=== PATIENT | male | born 1965 | race Caucasian/White ===

== ENCOUNTER 2016-12-26 20:59 | Emergency (ER) | payer OTHER ==
[~2016-12-26] VITALS: Ht 180.3 cm; Wt 88.0 kg
[~2016-12-26 20:59] MED LIST: AMLO5TAB2 PO; ATOR40TA16 PO; CEPH-460 PO; CLOP75TA PO; CYCL1TAB29 PO; HYDR25TA5 PO; METO50TA PO; POTA-245 PO; ULTR50TA5 PO
[2016-12-26 21:01] VITALS: BP 230/120; PULSE 93; RESP 20; TEMP 99.3; O2SAT 99
[2016-12-26 21:10] VITALS: BP 190/103; PULSE 88; RESP 16; O2SAT 98
[2016-12-26] MEDS ORDERED: HYDR-3533 PO (21:10)
[2016-12-26 21:11] VITALS: RESP 16; O2SAT 98
[2016-12-26] MEDS ORDERED: NITROGLYCERIN 0.4 MG SL 25 TABS/BTL SL ONE (21:15)
[2016-12-26] MEDS ORDERED: ASPIRIN 325 MG TAB PO ONE (21:15)
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
[2016-12-26 21:25] VITALS: BP 184/108; PULSE 79; RESP 18; O2SAT 96
[2016-12-26] MEDS ORDERED: LORazepam 2 MG/ML VIAL IV PUSH ONE (21:30)
[2016-12-26 21:32] LABS: AUTOMATED NEUTROPHIL # 5.5 TH/MM3 (1.8-7.7); BASOPHIL % 0.4 % (0.0-2.0); EOSINOPHIL # 0.2 TH/MM3 (0-0.4); EOSINOPHIL % 2.3 % (0.0-4.0); HEMATOCRIT 44.5 % (39.0-51.0); HEMO FLAGS DIFF FINAL; LYMPH % 24.1 % (9.0-44.0); LYMPHOCYTE # 1.9 TH/MM3 (1.0-4.8); MEAN CELL VOLUME 85.8 FL (80.0-100.0); MEAN CORPUSCULAR HEMOGLOBIN 29.2 PG (27.0-34.0); MONO % 4.9 % (0.0-8.0); NEUT % 68.3 % (16.0-70.0); PLATELET COUNT 182 TH/MM3 (150-450); RED BLOOD COUNT 5.18 MIL/MM3 (4.50-5.90); RED CELL DISTRIBUTION WIDTH 13.4 % (11.6-17.2)
[2016-12-26 21:34] VITALS: BP 170/93; PULSE 80; RESP 16; O2SAT 96
[2016-12-26 21:38] LABS: APTT (PATIENT) 25.4 SEC (24.3-30.1); INTERNATIONAL NORMALIZED RATIO 0.9 RATIO; PROTHROMBIN TIME - PATIENT 10.3 SEC (9.8-11.6)
[2016-12-26 21:59] LABS: ALKALINE PHOSPHATASE 75 U/L (45-117); ALT (GPT) 40 U/L (12-78); ANION GAP 9 MEQ/L (5-15); AST (GOT) 19 U/L (15-37); BICARBONATE 30.6 MEQ/L (21.0-32.0); BLOOD UREA NITROGEN 17 MG/DL (7-18); CHLORIDE 101 MEQ/L (98-107); CREATINE KINASE 217 U/L (39-308); GLOMERULAR FILTRATION RATE 59 ML/MIN (>89); MAGNESIUM 2.1 MG/DL (1.5-2.5); SODIUM (NA) 141 MEQ/L (136-145); TOTAL BILIRUBIN ADULT 0.5 MG/DL (0.2-1.0)
--- NOTE | 2016-12-26 22:00 | RADRPT ---
EXAM DATE/TIME: 12/26/2016 21:42 [facility] COMPARISON: No previous studies available for comparison. INDICATIONS : Chest pain. MEDICAL HISTORY : None. SURGICAL HISTORY : None. ENCOUNTER: Initial ACUITY: 1 day PAIN SCORE: 0/10 LOCATION: Bilateral chest FINDINGS: A single view of the chest demonstrates the lungs to be symmetrically aerated without evidence of mas s, infiltrate or effusion. The cardiomediastinal contours are unremarkable. Osseous structures are intact. CONCLUSION: No acute disease. Kwasi Bahena MD on December 26, 2016 at 21:58 Board Certified Radiologist. This report was verified electronically.
[2016-12-26 22:03] LABS: POTASSIUM 2.9 MEQ/L (3.5-5.1)
[2016-12-26 22:07] VITALS: BP 161/95; PULSE 88; RESP 22; O2SAT 96
[2016-12-26] MEDS ORDERED: POTASSIUM CHLORIDE 20 MEQ CONTROLLED RELEASE TAB PO ONE (22:15)
[2016-12-26 22:17] LABS: CKMB 2.3 NG/ML (0.5-3.6)
[2016-12-26] MEDS ORDERED: VIST50CA PO (22:17)
[2016-12-27 00:12] VITALS: BP 160/90; PULSE 88; RESP 20; O2SAT 98
--- NOTE | 2016-12-27 08:15 | EKG ---
Date Performed: 12/26/2016 Time Performed: 21:07:51 PTAGE: 51 years EKG: Sinus rhythm NORMAL ECG NO PREVIOUS TRACING DOCTOR: Yobany Lora Interpretating Date/Time 12/27/2016 08:13:54
== END 2016-12-27 00:30 | disposition home or self-care (01) ==
LOC: NEPE 20:59
DX: R07.89 Other chest pain (principal); I10 Essential (primary) hypertension; J45.909 Unspecified asthma, uncomplicated; Z86.73 Personal history of transient ischemic attack (TIA), and cerebral infarction without residual deficits; Z79.02 Long term (current) use of antithrombotics/antiplatelets; Z79.899 Other long term (current) drug therapy
CPT/HCPCS: 71010; 80053; 82550; 82552; 83690; 83735; 84484; 85025; 85610; 85730; 93005; 96374; 99285; J2060

== ENCOUNTER 2017-09-02 00:02 | Emergency (ER) | payer OTHER, MEDICAID ==
[~2017-09-02] VITALS: Ht 188 cm; Wt 122.0 kg
[~2017-09-02 00:02] MED LIST changes: -CEPH-460 PO; +CYCL10TA PO; -CYCL1TAB29 PO; +HYDR-3533 PO; -POTA-245 PO; -ULTR50TA5 PO; +VIST50CA PO
[2017-09-02 00:04] VITALS: BP 140/81; PULSE 76; RESP 16; TEMP 98.9; O2SAT 98
[2017-09-02] MEDS ORDERED: RESP: ALBUTEROL 2.5 MG/IPRATROPIUM 0.5 MG NEB (SCH) INH ONE (00:30)
[2017-09-02] MEDS ORDERED: predniSONE 20 MG TAB PO ONE (00:30)
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
--- NOTE | 2017-09-02 01:00 | RADRPT ---
EXAM DATE/TIME: 09/02/2017 00:43 [facility] COMPARISON: CHEST SINGLE AP, December 26, 2016, 21:42. INDICATIONS : Cold and flu symptoms for three days. MEDICAL HISTORY : Hypertension. SURGICAL HISTORY : None. ENCOUNTER: Initial ACUITY: 3 days PAIN SCORE: 0/10 LOCATION: Bilateral chest FINDINGS: A single view of the chest demonstrates the lungs to be symmetrically aerated without evidence of mas s, infiltrate or effusion. The cardiomediastinal contours are unremarkable. Osseous structures are intact. CONCLUSION: No acute disease. Suhail Solorzano MD on September 02, 2017 at 0:57 Board Certified Radiologist. This report was verified electronically.
[2017-09-02] MEDS ORDERED: ALBU6.7H INH (02:16)
[2017-09-02] MEDS ORDERED: PRED-503 PO (02:16)
== END 2017-09-02 02:50 | disposition home or self-care (01) ==
LOC: NEPD 00:02
DX: J45.909 Unspecified asthma, uncomplicated (principal); I10 Essential (primary) hypertension; E78.00 Pure hypercholesterolemia, unspecified; I69.351 Hemiplegia and hemiparesis following cerebral infarction affecting right dominant side
CPT/HCPCS: 71045; 87804; 94664; 99284; J7512